=== PATIENT | male | born 1965 | race Caucasian/White ===

== ENCOUNTER → 2016-11-17 | Outpatient (CLI) | payer MEDICAID ==
[2016-11-17 14:42] LABS: AMPHETAMINES/METAMPHETAMINES NEGATIVE ng/mL (<1000)
== END ==
LOC: LAB 13:37
PROVIDERS: Emergency Medicine
DX: Z79.899 Other long term (current) drug therapy (principal)

== ENCOUNTER → 2017-08-04 | Outpatient (CLI) | payer MEDICAID ==
[2017-08-04 13:54] LABS: AMPHETAMINES/METAMPHETAMINES NEGATIVE ng/mL (<1000)
== END ==
LOC: LAB 11:53
PROVIDERS: Emergency Medicine
DX: Z79.899 Other long term (current) drug therapy (principal)

== ENCOUNTER → 2017-08-12 | Outpatient (CLI) | payer MEDICAID ==
--- NOTE | 2017-08-12 12:42 | RADIOLOGY REPORT PS360 ---
History and Indications: Hypertension, tobacco use, shortness of breath and fatigue Procedure: Patient exercised on Charlie protocol 6 minutes and 30 seconds, resting heart rate was 93 bpm, resting blood pressure 118/77, with exercise maximum heart rate achieved was 1 60 bpm, equal to 96% of the maximum predicted heart rate and a blood pressure was 166/76. The test was started due to shortness of breath, patient denied any complained of chest pain. Patient has adequate exercise capacity achieved 7mets of workload on treadmill, the blood pressure response to exercise was adequate. Electrocardiogram: Resting electrocardiogram showed sinus rhythm, with exercise there is less than 1.[address] segment depression noted from the baseline EKG. Of the exercise Myoview is negative for ischemia Cardiac stress and resting SPECT images: Cardiac stress and rest SPECT images were obtained using technetium 99 Myoview 10.4 mCi at rest and 30.7 mCi at stress, gated SPECT further analysis of segmental wall motion and calculation of the ejection fraction also done. Cardiac stress and rest activity show uniform myocardial activity without segmental perfusion abnormality, computer derived ejection fraction no obvious regional wall motion abnormality, right ventricle is normal size and contractility. Conclusion: 1. The EKG portion of the exercise Myoview is negative for ischemia. Patient has adequate exercise capacity achieved 7mets of workload on treadmill, the blood pressure response to exercise was adequate, there was no exercise-induced chest discomfort. 2. No obvious scintigraphic evidence of reversible ischemia seen, computer derived ejection fraction is 62% with no obvious regional wall motion abnormality, right ventricle is normal size and contractility. 3. Normal exercise Myoview study.
== END ==
LOC: RAD 06:51
DX: R07.9 Chest pain, unspecified (principal)
CPT/HCPCS: A9502

== ENCOUNTER → 2017-09-28 | Outpatient (CLI) | payer MEDICAID ==
[2017-09-28 21:49] LABS: AMPHETAMINES/METAMPHETAMINES NEGATIVE ng/mL (<1000)
[2017-09-30 08:46] LABS: Testosterone 367 ng/dL (264-916)
== END ==
LOC: LAB 17:42
PROVIDERS: Emergency Medicine
DX: R53.1 Weakness (principal); Z79.899 Other long term (current) drug therapy

== ENCOUNTER → 2017-10-27 | Outpatient (CLI) | payer MEDICAID ==
[2017-10-27 20:09] LABS: AMPHETAMINES/METAMPHETAMINES NEGATIVE ng/mL (<1000)
[2017-11-07 07:35] LABS: Alprazolam Negative (Cutoff=100); Benzodiazepines Positive ng/mL (Cutoff=100); Clonazepam Positive (.); Clonazepam Confirm 203 ng/mL (Cutoff=100); Flurazepam Negative (Cutoff=100); Lorazepam Negative (Cutoff=100); Midazolam Negative (Cutoff=100); Opiates Negative (Cutoff=100); Temazepam Negative (Cutoff=100); Triazolam Negative (Cutoff=100)
== END ==
LOC: LAB 16:55
PROVIDERS: Emergency Medicine
DX: Z79.899 Other long term (current) drug therapy (principal)
CPT/HCPCS: G0480